=== PATIENT | male | born 1975 | race African-American/Black ===

== ENCOUNTER 2021-08-27 10:20 | Emergency (ER) | payer SELFPAY ==
--- NOTE | ~2021-08-27 | CT_ITS ---
EXAMINATION: CT brain wo con, CT cervical spine wo con EXAM DATE: 08/27/2021 11:06 INDICATION: fall off of truck bed today, post Head injury/pain TECHNIQUE: Spiral CT of the head was performed without contrast. Axial, coronal and sagittal images were reviewed. Spiral CT of the cervical spine was performed without contrast. Axial images were rev iewed. Coronal and sagittal reformatted images were also reviewed. The dose-length product (DLP) fo r this examination was 605.33 (accession [id number]), 451.26 (accession [id number]) mGy-cm. The exposure was tailored according to patient size, and iterative reconstruction (ASIR) was used as additional dose reduction technique. There is no prior study for comparison. FINDINGS: HEAD CT: There is thin acute subdural hematoma extending along the falx, up to 3 mm in thickness. The re is small amount of right frontal lobe acute subarachnoid hemorrhage, location is consistent with p osttraumatic etiology. There is no acute intraparenchymal hemorrhage. No evidence of intraparenchyma l brain mass lesion. No evidence of acute infarction. There is no mass effect or midline shift. Ther e is no obstructive hydrocephalus suspected. There are no acute calvarial fractures. The orbits are unremarkable. Soft tissue is unremarkable. The visualized sinuses and mastoid air cells are well a erated. CERVICAL CT: There is no evidence of acute cervical fracture. The odontoid process is intact. Pre- dens space is normal. Prevertebral soft tissue is normal. There are no soft tissue abnormalities id entified. There is no disc space widening or traumatic vertebral body subluxation suspected. Mild t o moderate C5-6 disc disease. A detailed level by level evaluation of spondylosis can be added as ad dendum if requested. IMPRESSION: 1. Thin acute falcine subdural hematoma. 2. Small acute right frontal lobe subarachnoid hemorrhage. 3. Cervical spondylosis without fracture. I discussed acute findings with Dr. Harman Ruiz MD at 08/27/2021 11:16 [employer] . Reviewed, dictated and finalized at location B. [facility]ATH[facility] IMPRESSION: 1. Thin acute falcine subdural hematoma. 2. Small acute right frontal lobe subarachnoid hemorrhage. 3. Cervical spondylosis without fracture. I discussed acute findings with Dr. Harman Ruiz MD at 08/27/2021 11:[address]
[2021-08-27 10:29] VITALS: BP 161/101; PULSE 100; RESP 20; TEMP 36.4; O2SAT 97
--- NOTE | 2021-08-27 10:29 | ED.HEATRA ---
HPI - Head Injury General Chief complaint: Head Injury Stated complaint: ambulance Time Seen by Provider: 08/27/21 10:29 Source: patient and EMS Mode of arrival: EMS Limitations: no limitations History of Present Illness HPI Narrative: is a 45-year-old gentleman presents with a injury to the back of his head after he was at work and he wind caused him to fall off a flatbed truck about 5ft striking the back of his head, no other injuries the patient is complaining of a headache rates it about 8/10 no bleeding no nausea vomiting no back or hip pain no shoulder or arm pain patient is in a C-collar and is complaining of a headache in the back of his head and upper neck area, this occurred earlier this morning with some loss of consciousness for about 1minute with no seizure activity. Complaint: head injury Onset (ago): hour(s) Arrival Conditions: C-spine immobilization present Mechanism of Injury: fall and work related injury Place: work Loss of Consciousness: yes Location of injury: occipital Severity: moderate Severity scale (1-10): 8 Quality: aching Radiation: none Other Injuries: none Related Data Home Medications Medication Instructions Recorded Confirmed losartan 50 mg PO DAILY 08/27/21 08/27/21 Allergies Allergy/AdvReac Type Severity Reaction Status Date / Time ketorolac [From Toradol] Allergy Unknown Verified 08/27/21 10:56 Review of Systems Review of Systems: All systems reviewed & are unremarkable except as noted in HPI and below PMFSH Past Medical History Medical History HTN (hypertension) Exam Const: General: no acute distress and alert Orientation/consciousness: patient oriented x3 HENMT: Head: normal to inspection and contusion Eyes: Conjunctivae: conjunctivae normal Pupils: Equal, round and reactive pupils present EOM: EOMs intact bilaterally Direct Ophthalmoscopy: no photophobia Neck: Neck: normal visual inspection, no lymphadenopathy and no meningeal signs Chest: Chest palpation & inspection: normal inspection of the chest Resp: Effort & Inspection: normal respiratory effort Auscultation: clear to auscultation bilaterally Cardio: Rate: regular rate Rhythm: regular rhythm GI: GI Palp: Yes Soft to palpation Percussion: Yes normal to percussion : Testes: Testes normal Urinary Catheter: Urinary Catheter: patent and draining Back/Spine/Pelvis: Back: no CVA tenderness Skin: Other: abrasion posterior scalp occipital area Neuro: General: patient oriented x3, moves all extremities, no meningeal signs and no focal motor deficits Cranial nerves: Yes CN's II-XII intact bilaterally and Yes Nystagmus not present Speech: normal speech Extrem: General: normal to inspection and no pedal edema Psych: Mental Status: mental status grossly normal Affect: normal affect Attitude: cooperative Course Course Emergency Course: patient started on IV fluids, given morphine for pain relief, had a CT scan and neck CT and head CT as well as blood work. CT scan of head shows no acute subarachnoid hemorrhage as well as an acute fall Shannen subdural hematoma spoke to trauma team at [facility] in [place] that accepted the patient. Critical Care Time Critical Care Time Critical Care Time: No Discharge Plan Discharge Clinical Impression: Acute subdural hematoma Subarachnoid hematoma Qualifiers: Encounter type: initial encounter Loss of consciousness presence/duration: with LOC of unspecified duration Qualified Code(s): S06.6X9A - Traumatic subarachnoid hemorrhage with loss of consciousness of unspecified duration, initial encounter Patient Disposition: Acute Care Hospital Condition: Stable Prescriptions: No Action losartan 50 mg Tablet 50 mg PO DAILY RF: 0 Follow-up/Referrals: UNKNOWN,DOCTOR [Primary Care Provider] - Time of Disposition: 11:41
[2021-08-27 10:46] LABS: Glucose Point of Care 105 mg/dl (65-105)
[2021-08-27] MEDS: SODIUM CHLORIDE 0.9% IV 500 ML 999 ML IV CONT (10:53)
[2021-08-27 10:54] LABS: Add Urine Microscopic? NO; Appearance Urine Clear (Clear); Bilirubin Urine Negative (Negative); Blood Urine Negative (Negative); Color Urine Light Yellow (Yellow); Glucose Urine UA Negative (Negative); Ketones Urine Negative (Negative); Leukocyte Esterase Ur Negative (Negative); Nitrate Urine Negative (Negative); Protein Urine Negative (Negative)
[2021-08-27] MEDS: ONDANSETRON INJ 4 MG/2 ML VIAL IV PUSH (10:54)
[2021-08-27] MEDS: MORPHINE SULFATE (*CRX) 2 MG/ML INJ IV PUSH (10:54)
[2021-08-27 11:21] LABS: Alanine Aminotransferase 23 U/L (16-63); Albumin Level 4.1 g/dL (3.4-5.0); Alkaline Phosphatase 57 U/L (46-116); Anion Gap 15 mmol/L (8-16); Aspartate Amino Transferase 17 U/L (15-37); Blood Urea Nitrogen 13 mg/dL (7-18); Calcium 9.2 mg/dL (8.5-10.1); Carbon Dioxide 23 mmol/L (21-32); Chloride 103 mmol/L (98-108); Creatine Kinase 277 U/L (39-308); Estimated CRCL calculation 84 ml/min; Estimated Glomerular Filt Rate > 60; Glucose 110 mg/dL (70-99); Osmolality Calculated 293 mOsm/kg (285-295); Potassium 3.3 mmol/L (3.5-5.1); Sodium 141 mmol/L (136-145); Total Protein 7.7 g/dL (6.4-8.2)
[2021-08-27 11:36] LABS: Basophils Absolute Auto 0.02 K/mm3 (0.00-0.10); Basophils Percent Auto 0.3 % (0.0-1.0); Eosinophils Absolute Auto 0.18 K/mm3 (0.02-0.50); Eosinophils Percent Auto 3.1 % (1.0-6.0); Hematocrit 44.6 % (40.0-54.0); Hemoglobin 14.9 g/dL (14.0-18.0); Immature Granulocyte Absolute 0.07 K/mm3 (0.00-0.00); Immature Granulocyte Percent A 1.2 % (0.0-0.0); Lymphocytes Absolute Auto 1.45 K/mm3 (1.10-4.50); Lymphocytes Percent Auto 25.3 % (18.0-42.0); Mean Corpuscular HGB Conc 33.4 g/dL (32.0-36.0); Mean Corpuscular Volume 86.9 fL (78.0-102.0); Monocytes Absolute Auto 0.71 K/mm3 (0.10-0.90); Monocytes Percent Auto 12.4 % (2.0-11.0); Neutrophils Absolute Auto 3.3 K/mm3 (1.7-7.2); Neutrophils Percent Auto 57.7 % (50.0-70.0); Platelet Count Result 258 K/mm3 (150-420); Red Blood Count 5.13 M/mm3 (4.70-6.10); Red Cell Distribution Width 14.9 % (11.6-14.4); White Blood Count 5.7 K/mm3 (4.8-10.8)
[2021-08-27 11:46] LABS: INR 1.1; Partial Thromboplastin Time 30.8 SEC (23.90-30.70); Prothrombin Time 11.3 Seconds (9.50-12.10)
[2021-08-27 12:09] VITALS: BP 148/99; PULSE 104; RESP 20; TEMP 36.7; O2SAT 98
== END 2021-08-27 12:16 | disposition short-term general hospital (02) ==
PROVIDERS: Emergency Provider Emergency Medicine
DX: S06.6X9A Traumatic subarachnoid hemorrhage with loss of consciousness of unspecified duration, initial encounter (principal); W17.89XA Other fall from one level to another, initial encounter
CPT/HCPCS: 36415; 70450; 72125; 80053; 81003; 82550; 82948; 85025; 85610; 85730; 96361; 96374; 96375; 99285; J2270; J2405; J7040